=== PATIENT | female | born 1950 | race Caucasian/White ===

== ENCOUNTER 2019-01-09 10:33 | Inpatient (IN) | payer OTHER, MEDICAID ==
[~2019-01-09] VITALS: Ht 162.6 cm; Wt 69.9 kg
[~2019-01-09 10:33] MED LIST: ALBMDI INH; ASPI-1155 PO; BUDE6HFA INH; CARV3.1246 PO; CARV6.2554 PO; CEL20 PO; CILO50TA PO; FLOR.1 PO; FURO40TA5 PO; INSU100V SQ; INSU100V11 SQ; LISI-600 PO; TIOT18CA3 IH
[2019-01-09] MEDS ORDERED: CILO100T PO (14:48)
[2019-01-09] MEDS ORDERED: GABA-531 PO (14:48)
[2019-01-09] MEDS ORDERED: CARV25TA55 PO (14:48)
[2019-01-09 14:52] VITALS: BP_SYST 165
[2019-01-09] MEDS ORDERED: CYCL-10 PO (14:52)
[2019-01-09] MEDS ORDERED: INSU200I SQ (14:52)
[2019-01-09] MEDS ORDERED: TRAM-350 PO (14:52)
[2019-01-09] MEDS ORDERED: NORMAL SALINE 5 ML DISP.SYRIN IVF ONE (15:30)
[2019-01-09 16:00] VITALS: BP_SYST 148
[2019-01-09 16:02] LABS: BASOPHILS % (AUTO) 0.2 % (0.0-2.0); EOSINOPHILS % (AUTO) 0.3 % (0.0-4.0); HEMATOCRIT 43.6 % (36-48); LYMPHOCYTES # (AUTO) 2.3 K/uL (1.0-5.5); LYMPHOCYTES % (AUTO) 20.9 % (20.5-51.5); MEAN CORPUSCULAR HEMOGLOBIN 28 pg (27-31); MEAN CORPUSCULAR HGB CONC 32 % (32-36); MEAN CORPUSCULAR VOLUME 87 fL (79.0-98.0); MONOCYTES # (AUTO) 0.6 K/uL (0.0-1.0); MONOCYTES % (AUTO) 5.2 % (1.7-9.3); NEUTROPHILS # (AUTO) 8.2 K/uL (1.8-7.7); NEUTROPHILS % (AUTO) 73.4 % (40.0-70.0); PLATELET COUNT (AUTO) 495 K/uL (130-430); RED BLOOD CELL COUNT(AUTO) 4.99 MIL/uL (4.2-6.2); RED CELL DISTRIBUTION WIDTH 14.8 % (9.0-15.0); WHITE BLOOD COUNT (AUTO) 11.2 K/uL (4.8-10.8)
[2019-01-09 16:10] LABS: ALBUMIN 3.1 g/dL (3.4-4.8); CREATININE 1.21 mg/dL (0.55-1.30); POTASSIUM 4.2 mmol/L (3.5-5.1); TOTAL BILIRUBIN 0.3 mg/dL (0.0-1.0)
[2019-01-09] MEDS ORDERED: NON-FORMULARY MEDICATION (Tramadol Hcl/Acetaminophen (Acetaminophn-Tramadol 325-37.5) 1 TA PO PRN (16:30)
[2019-01-09] MEDS: GABAPENTIN 300 MG CAPSULE PO SCH ×2 (16:53→21:23)
[2019-01-09] MEDS: 0.45% NACL 1,000 ML IV SCH (16:56)
[2019-01-09] MEDS: MORPHINE 2 MG/ML INJ. SYRINGE IVP PRN (16:58)
[2019-01-09] MEDS ORDERED: DEXTROSE 50%-WATER 50 ML DISP.SYRIN IVP PRN (17:30)
[2019-01-09] MEDS ORDERED: GLUCOSE 15 GM GEL (in 37.5 GM TUBE) PO PRN (17:30)
[2019-01-09] MEDS ORDERED: D5W 1,000 ML IV PRN (17:30)
[2019-01-09] MEDS: INSULIN LISPRO SLIDING SCALE 100 UNITS/ML VIAL (humaLOG) SUBCUT PRN ×2 (17:39→21:21)
[2019-01-09] MEDS: GENTAMICIN 120 MG/ ISO-OSM 100 ML PREMIX IV SCH (18:04)
[2019-01-09 18:13] LABS: BILIRUBIN,URINE NEGATIVE (NEGATIVE); BLOOD, URINE NEGATIVE (NEGATIVE); CLARITY/URINE HAZY (CLEAR); COLOR,URINE YELLOW (YELLOW); GLUCOSE,URINE 3+ (NEGATIVE); KETONES,URINE NEGATIVE (NEGATIVE); LEUKOCYTE ESTERASE ,URINE NEGATIVE (NEGATIVE); NITRITE, URINE NEGATIVE (NEGATIVE); PH,URINE 5.5 (5.0-8.0); PROTEIN URINE TRACE (NEGATIVE); UROBILINOGEN,URINE 0.2 (0.2-1.0)
[2019-01-09 18:25] LABS: RBC,URINE NONE SEEN /HPF (0-3); WBC,URINE 0-3 /HPF (0-3)
[2019-01-09 18:26] LABS: BACTERIA,URINE MANY /HPF (None Seen); MUCUS,URINE None Seen /LPF (None Seen)
[2019-01-09 19:00] VITALS: BP_SYST 152
[2019-01-09 20:00] VITALS: BP_SYST 152
[2019-01-09] MEDS: ENOXAPARIN SODIUM 30 MG/0.3 ML SYRINGE SUBCUT SCH (21:17)
[2019-01-09] MEDS: INSULIN GLARGINE 100 UNITS/ML 10 ML VIAL SUBCUT SCH (21:19)
[2019-01-09] MEDS: CILOSTAZOL 50 MG TABLET (PLETAL) PO SCH (21:23)
[2019-01-09] MEDS: CYCLOBENZAPRINE HCL 10 MG TABLET (FLEXERIL) PO SCH (21:23)
[2019-01-09] MEDS: NORMAL SALINE 5 ML DISP.SYRIN IVF SCH (21:24)
[2019-01-09] MEDS: CARVEDILOL 25 MG TABLET (COREG) PO SCH (21:28)
[2019-01-09] MEDS: CITALOPRAM HYDROBROMIDE 20 MG TABLET PO SCH (21:28)
[2019-01-10 03:08] VITALS: BP_SYST 128
[2019-01-10] MEDS: 0.45% NACL 1,000 ML IV SCH ×2 (06:05→10:48)
[2019-01-10] MEDS: NORMAL SALINE 5 ML DISP.SYRIN IVF SCH ×3 (06:13→23:59)
[2019-01-10] MEDS: MORPHINE 2 MG/ML INJ. SYRINGE IVP PRN ×3 (06:24→20:09)
[2019-01-10] MEDS: INSULIN LISPRO SLIDING SCALE 100 UNITS/ML VIAL (humaLOG) SUBCUT PRN ×4 (07:10→21:26)
[2019-01-10 07:45] VITALS: BP_SYST 146
[2019-01-10] MEDS: CYCLOBENZAPRINE HCL 10 MG TABLET (FLEXERIL) PO SCH ×2 (07:58→20:09)
[2019-01-10] MEDS: FLUDROCORTISONE ACETATE 0.1 MG TABLET( FLORINEF) PO SCH (07:58)
[2019-01-10] MEDS: GABAPENTIN 300 MG CAPSULE PO SCH ×4 (07:58→20:09)
[2019-01-10] MEDS: LISINOPRIL 20 MG TABLET PO SCH (07:59)
[2019-01-10] MEDS: CILOSTAZOL 50 MG TABLET (PLETAL) PO SCH ×2 (07:59→20:09)
[2019-01-10] MEDS: CARVEDILOL 25 MG TABLET (COREG) PO SCH ×2 (07:59→20:10)
[2019-01-10 13:13] VITALS: BP_SYST 130
[2019-01-10 15:28] VITALS: BP_SYST 127
[2019-01-10] MEDS: GENTAMICIN 120 MG/ ISO-OSM 100 ML PREMIX IV SCH (17:03)
[2019-01-10] MEDS ORDERED: traMADol HCL HCL 50 MG TABLET (ULTRAM) PO PRN (18:15)
[2019-01-10 20:00] VITALS: BP_SYST 135
[2019-01-10] MEDS: CITALOPRAM HYDROBROMIDE 20 MG TABLET PO SCH (20:09)
[2019-01-10] MEDS: INSULIN GLARGINE 100 UNITS/ML 10 ML VIAL SUBCUT SCH (21:27)
[2019-01-10] MEDS: ENOXAPARIN SODIUM 30 MG/0.3 ML SYRINGE SUBCUT SCH (21:27)
[2019-01-11 00:50] VITALS: BP_SYST 110
[2019-01-11] MEDS: MORPHINE 2 MG/ML INJ. SYRINGE IVP PRN ×2 (04:28→14:30)
[2019-01-11 06:40] LABS: BASOPHILS % (AUTO) 0.4 % (0.0-2.0); EOSINOPHILS # (AUTO) 0.2 K/uL (0.0-0.4); EOSINOPHILS % (AUTO) 2.4 % (0.0-4.0); HEMATOCRIT 39.3 % (36-48); HEMOGLOBIN 13.1 g/dL (12.0-16.0); LYMPHOCYTES # (AUTO) 3.2 K/uL (1.0-5.5); LYMPHOCYTES % (AUTO) 32.9 % (20.5-51.5); MEAN CORPUSCULAR HEMOGLOBIN 29 pg (27-31); MEAN CORPUSCULAR HGB CONC 33 % (32-36); MEAN CORPUSCULAR VOLUME 87 fL (79.0-98.0); MONOCYTES # (AUTO) 0.5 K/uL (0.0-1.0); MONOCYTES % (AUTO) 5.2 % (1.7-9.3); NEUTROPHILS # (AUTO) 5.7 K/uL (1.8-7.7); NEUTROPHILS % (AUTO) 59.1 % (40.0-70.0); PLATELET COUNT (AUTO) 438 K/uL (130-430); RED BLOOD CELL COUNT(AUTO) 4.51 MIL/uL (4.2-6.2); RED CELL DISTRIBUTION WIDTH 14.7 % (9.0-15.0); WHITE BLOOD COUNT (AUTO) 9.7 K/uL (4.8-10.8)
[2019-01-11] MEDS: NORMAL SALINE 5 ML DISP.SYRIN IVF SCH ×3 (06:51→22:30)
[2019-01-11 07:13] LABS: CALCIUM 8.8 mg/dL (8.4-11.0); CREATININE 1.07 mg/dL (0.55-1.30); POTASSIUM 4.1 mmol/L (3.5-5.1)
[2019-01-11 08:00] VITALS: BP_SYST 135
[2019-01-11] MEDS: LISINOPRIL 20 MG TABLET PO SCH (10:26)
[2019-01-11] MEDS: GABAPENTIN 300 MG CAPSULE PO SCH ×4 (10:26→22:23)
[2019-01-11] MEDS: CYCLOBENZAPRINE HCL 10 MG TABLET (FLEXERIL) PO SCH ×2 (10:26→22:24)
[2019-01-11] MEDS: CILOSTAZOL 50 MG TABLET (PLETAL) PO SCH ×2 (10:26→22:24)
[2019-01-11] MEDS: CARVEDILOL 25 MG TABLET (COREG) PO SCH ×2 (10:27→22:29)
[2019-01-11] MEDS: FLUDROCORTISONE ACETATE 0.1 MG TABLET( FLORINEF) PO SCH (10:55)
[2019-01-11 11:20] VITALS: BP_SYST 144
[2019-01-11] MEDS: GENTAMICIN 120 MG/ ISO-OSM 100 ML PREMIX IV SCH (19:43)
[2019-01-11 20:00] VITALS: BP_SYST 119
[2019-01-11] MEDS: CITALOPRAM HYDROBROMIDE 20 MG TABLET PO SCH (22:23)
[2019-01-11] MEDS: ENOXAPARIN SODIUM 30 MG/0.3 ML SYRINGE SUBCUT SCH (22:39)
[2019-01-11] MEDS: INSULIN GLARGINE 100 UNITS/ML 10 ML VIAL SUBCUT SCH (22:40)
[2019-01-12 00:30] VITALS: BP_SYST 144
[2019-01-12] MEDS: NORMAL SALINE 5 ML DISP.SYRIN IVF SCH ×3 (06:50→21:48)
[2019-01-12] MEDS: MORPHINE 2 MG/ML INJ. SYRINGE IVP PRN ×3 (07:10→21:39)
[2019-01-12 08:00] VITALS: BP_SYST 137
[2019-01-12] MEDS: CILOSTAZOL 50 MG TABLET (PLETAL) PO SCH ×2 (08:24→21:38)
[2019-01-12] MEDS: FLUDROCORTISONE ACETATE 0.1 MG TABLET( FLORINEF) PO SCH (08:24)
[2019-01-12] MEDS: CYCLOBENZAPRINE HCL 10 MG TABLET (FLEXERIL) PO SCH ×2 (08:24→21:37)
[2019-01-12] MEDS: CARVEDILOL 25 MG TABLET (COREG) PO SCH ×2 (08:25→21:37)
[2019-01-12] MEDS: LISINOPRIL 20 MG TABLET PO SCH (08:25)
[2019-01-12] MEDS: GABAPENTIN 300 MG CAPSULE PO SCH ×4 (08:25→21:38)
[2019-01-12 12:00] VITALS: BP_SYST 127
[2019-01-12] MEDS: INSULIN LISPRO SLIDING SCALE 100 UNITS/ML VIAL (humaLOG) SUBCUT PRN ×3 (12:04→21:46)
[2019-01-12 16:00] VITALS: BP_SYST 110
[2019-01-12] MEDS: GENTAMICIN 120 MG/ ISO-OSM 100 ML PREMIX IV SCH (17:31)
[2019-01-12 20:00] VITALS: BP_SYST 157
[2019-01-12] MEDS: CITALOPRAM HYDROBROMIDE 20 MG TABLET PO SCH (21:38)
[2019-01-12] MEDS: ENOXAPARIN SODIUM 30 MG/0.3 ML SYRINGE SUBCUT SCH (21:45)
[2019-01-12] MEDS: INSULIN GLARGINE 100 UNITS/ML 10 ML VIAL SUBCUT SCH (21:47)
[2019-01-13 00:28] VITALS: BP_SYST 141
[2019-01-13] MEDS: NORMAL SALINE 5 ML DISP.SYRIN IVF SCH ×2 (05:02→14:00)
[2019-01-13] MEDS: MORPHINE 2 MG/ML INJ. SYRINGE IVP PRN ×3 (05:02→20:28)
[2019-01-13] MEDS: INSULIN LISPRO SLIDING SCALE 100 UNITS/ML VIAL (humaLOG) SUBCUT PRN ×4 (06:11→20:37)
[2019-01-13 07:14] LABS: BASOPHILS % (AUTO) 0.5 % (0.0-2.0); EOSINOPHILS # (AUTO) 0.1 K/uL (0.0-0.4); EOSINOPHILS % (AUTO) 1.4 % (0.0-4.0); HEMATOCRIT 41.6 % (36-48); HEMOGLOBIN 13.8 g/dL (12.0-16.0); LYMPHOCYTES # (AUTO) 2.9 K/uL (1.0-5.5); LYMPHOCYTES % (AUTO) 27.8 % (20.5-51.5); MEAN CORPUSCULAR HEMOGLOBIN 29 pg (27-31); MEAN CORPUSCULAR HGB CONC 33 % (32-36); MEAN CORPUSCULAR VOLUME 88 fL (79.0-98.0); MONOCYTES # (AUTO) 0.8 K/uL (0.0-1.0); MONOCYTES % (AUTO) 7.9 % (1.7-9.3); NEUTROPHILS # (AUTO) 6.4 K/uL (1.8-7.7); NEUTROPHILS % (AUTO) 62.4 % (40.0-70.0); PLATELET COUNT (AUTO) 428 K/uL (130-430); RED BLOOD CELL COUNT(AUTO) 4.75 MIL/uL (4.2-6.2); RED CELL DISTRIBUTION WIDTH 14.6 % (9.0-15.0); WHITE BLOOD COUNT (AUTO) 10.3 K/uL (4.8-10.8)
[2019-01-13 07:23] LABS: CALCIUM 9.1 mg/dL (8.4-11.0); CREATININE 0.94 mg/dL (0.55-1.30); POTASSIUM 5.1 mmol/L (3.5-5.1)
[2019-01-13 08:08] VITALS: BP_SYST 143
[2019-01-13] MEDS: CARVEDILOL 25 MG TABLET (COREG) PO SCH ×2 (08:19→20:28)
[2019-01-13] MEDS: GABAPENTIN 300 MG CAPSULE PO SCH ×4 (08:19→20:29)
[2019-01-13] MEDS: CILOSTAZOL 50 MG TABLET (PLETAL) PO SCH ×2 (08:19→20:29)
[2019-01-13] MEDS: LISINOPRIL 20 MG TABLET PO SCH (08:20)
[2019-01-13] MEDS: CYCLOBENZAPRINE HCL 10 MG TABLET (FLEXERIL) PO SCH ×2 (08:20→20:29)
[2019-01-13] MEDS: FLUDROCORTISONE ACETATE 0.1 MG TABLET( FLORINEF) PO SCH (08:21)
[2019-01-13 11:25] VITALS: BP_SYST 127
[2019-01-13 15:30] VITALS: BP_SYST 111
[2019-01-13 16:09] VITALS: BP_SYST 112
[2019-01-13] MEDS: GENTAMICIN 120 MG/ ISO-OSM 100 ML PREMIX IV SCH (18:41)
[2019-01-13] MEDS: CITALOPRAM HYDROBROMIDE 20 MG TABLET PO SCH (20:30)
[2019-01-13] MEDS: ENOXAPARIN SODIUM 30 MG/0.3 ML SYRINGE SUBCUT SCH (20:31)
[2019-01-13] MEDS: INSULIN GLARGINE 100 UNITS/ML 10 ML VIAL SUBCUT SCH (20:36)
== END 2019-01-13 21:53 | DRG 690 ==
LOC: SMU 14:05
PROVIDERS: ADMIT Family Medicine; ATTEND Family Medicine
DX: N39.0 Urinary tract infection, site not specified (principal); E86.0 Dehydration; E11.42 Type 2 diabetes mellitus with diabetic polyneuropathy; E11.51 Type 2 diabetes mellitus with diabetic peripheral angiopathy without gangrene; M19.90 Unspecified osteoarthritis, unspecified site; F17.200 Nicotine dependence, unspecified, uncomplicated; I10 Essential (primary) hypertension; J44.9 Chronic obstructive pulmonary disease, unspecified; R29.6 Repeated falls; Z96.643 Presence of artificial hip joint, bilateral; G89.29 Other chronic pain
CPT/HCPCS: 36415; 73521; 80048; 80053; 80170-TC; 81000-TC; 82962; 83880; 85025; 87081; 87086; 97116-GP; 97530-GP; J1580; J1650; J1815; J2270; J7030